=== PATIENT | female | born 1990 | race Caucasian/White ===

== ENCOUNTER 2018-06-09 09:57 | Emergency (ER) | payer MEDICAID ==
[2018-06-09] MEDS: predniSONE 20 MG TAB PO (10:23)
[2018-06-09] MEDS: ACETAMINOPHEN 325 MG TAB PO (10:23)
[2018-06-09] MEDS: ALBUTEROL 0.083% (NEB) 2.5 MG/3 ML AMP HHN (10:30)
== END 2018-06-09 11:52 | disposition home or self-care (01) ==
LOC: FTE 09:57
DX: R06.2 Wheezing (principal)
CPT/HCPCS: 71045; 94664; 99283-25

== ENCOUNTER 2018-10-01 16:17 | Emergency (ER) | payer OTHER, MEDICAID | END 2018-10-01 21:31 | disposition home or self-care (01) | LOC: FTE 16:17 | DX: R09.89 Other specified symptoms and signs involving the circulatory and respiratory systems (principal) | CPT/HCPCS: 99283; Z7502 ==